=== PATIENT | female | born 1970 | race Caucasian/White ===

== ENCOUNTER 2016-11-15 07:26 | Emergency (ER) | payer OTHER ==
[~2016-11-15] VITALS: Ht 162.5 cm; Wt 72.6 kg
[~2016-11-15 07:26] MED LIST: AMBIEN10 M1 PO; MOTRIN800 MG PO; SUBOXONE 8 MG-21 TA1 SL
[2016-11-15] MEDS ORDERED: PREDNISONE50 MG PO (09:44)
[2016-11-15 09:52] VITALS: BP 140/72
== END 2016-11-15 09:27 | disposition home or self-care (01) ==
LOC: ED 07:26
DX: J20.9 Acute bronchitis, unspecified (principal); F17.200 Nicotine dependence, unspecified, uncomplicated; Z90.710 Acquired absence of both cervix and uterus; Z79.899 Other long term (current) drug therapy; Z88.0 Allergy status to penicillin

== ENCOUNTER 2017-01-13 15:17 | Emergency (ER) | payer OTHER ==
[~2017-01-13] VITALS: Ht 167.6 cm; Wt 72.6 kg
[2017-01-13 15:17] VITALS: BP 155/88
[~2017-01-13 15:17] MED LIST changes: +PREDNISONE50 MG PO
[2017-01-13] MEDS ORDERED: KETOROLAC10 MG PO ×2 (18:47→18:54)
[2017-01-13] MEDS ORDERED: CYCLOBENZAPRINE5 M3 PO (18:47)
[2017-01-13] MEDS ORDERED: CYCLOBENZAPRINE10 MG PO (18:54)
== END 2017-01-13 18:53 | disposition home or self-care (01) ==
LOC: ED 15:17
DX: S20.211A Contusion of right front wall of thorax, initial encounter (principal); M54.2 Cervicalgia; Z88.0 Allergy status to penicillin; Z79.899 Other long term (current) drug therapy; V49.88XA Car occupant (driver) (passenger) injured in other specified transport accidents, initial encounter; Y93.89 Activity, other specified; Y92.89 Other specified places as the place of occurrence of the external cause; Y99.8 Other external cause status

== ENCOUNTER 2017-02-22 09:48 | Emergency (ER) | payer OTHER ==
[~2017-02-22] VITALS: Wt 72.6 kg
[~2017-02-22 09:48] MED LIST changes: +CYCLOBENZAPRINE10 MG PO; +CYCLOBENZAPRINE5 M3 PO; +KETOROLAC10 MG PO
[2017-02-22 12:00] VITALS: BP 158/99
[2017-02-22] MEDS ORDERED: NORVASC5 MG PO (12:08)
== END 2017-02-22 12:24 | disposition home or self-care (01) ==
LOC: ED 09:48
DX: R51 Headache (principal); R03.0 Elevated blood-pressure reading, without diagnosis of hypertension; Z88.0 Allergy status to penicillin; Z90.710 Acquired absence of both cervix and uterus

== ENCOUNTER 2021-05-31 21:23 | Inpatient (IN) | payer OTHER ==
[~2021-05-31] VITALS: Ht 162.5 cm; Wt 74.9 kg
[~2021-05-31 21:23] MED LIST changes: +NORVASC5 MG PO
[2021-05-31 21:25] VITALS: BP 167/91; BP 175/104
[2021-05-31 22:02] LABS: HEMATOCRIT 44.4 % (37.0-47.0); MEAN CELL VOLUME 78.6 fl (81.0-99.0); MEAN CORPUSCULAR HGB 27.4 pg (27.0-31.0); MEAN CORPUSCULAR HGB CONC 34.9 g/dl (33.0-37.0); MEAN PLATELET VOLUME 11.6 fl (9.6-12.3); PLATELET COUNT AUTOMATED 383 10*3/uL (130-400); RED BLOOD COUNT 5.65 10*6/uL (4.10-5.10); RED CELL DISTRI WIDTH 13.5 % (0-14.5); WHITE BLOOD COUNT 14.3 10*3/uL (4.8-10.8)
[2021-05-31 22:05] LABS: MANUAL DIFF REFLEX YES
[2021-05-31 22:16] LABS: CREATININE 1.31 mg/dL (0.55-1.02); TOTAL PROTEIN 8.6 gm/dL (6.4-8.2)
[2021-05-31 22:23] LABS: POTASSIUM 2.2 mmol/L (3.5-5.1)
[2021-05-31 22:28] LABS: PLATELET SUFFICIENCY NORMAL (NORMAL); TOTAL CELLS COUNTED 100 #CELLS
[2021-05-31 23:12] LABS: BILIRUBIN Negative (Negative); BLOOD 2+ (Negative); CLARITY Clear (Clear); COLOR Yellow (Yellow); GLUCOSE 3+ (Negative); KETONE 4+ (Negative); LEUKO ESTERASE Negative (Negative); NITRITE Negative (Negative); UROBILINOGEN 0.2 E.U./dl (0.0-1.0)
[2021-05-31 23:26] LABS: WBC 0-2 wbc/hpf (0-5)
[2021-06-01] VITALS (7 sets, daily range): BP systolic 105–140; BP diastolic 62–82
[2021-06-01 00:22] LABS: ARTERIAL BLOOD GAS PH 7.199 (7.35-7.45)
[2021-06-01] MEDS ORDERED: METFORMIN HCL500 M2 PO (00:54)
[2021-06-01] MEDS ORDERED: LIPITOR10 MG PO (00:55)
[2021-06-01] MEDS ORDERED: HYDROCHLOROTHIA50 M1 PO (00:55)
[2021-06-01] MEDS ORDERED: CEFDINIR300 MG PO (00:56)
[2021-06-01 05:39] LABS: BUN 24 mg/dl (7-24); CHLORIDE 108 mmol/L (98-107); CREATININE 1.02 mg/dL (0.55-1.02); SODIUM 136 mmol/L (136-145)
[2021-06-01 05:42] LABS: CHOLESTEROL 261 mg/dL (<200); LDL CHOLESTEROL 180 mg/dL (9-159); TRIGLYCERIDES 197 mg/dl (<150)
[2021-06-01 05:45] LABS: POTASSIUM 2.3 mmol/L (3.5-5.1)
[2021-06-01 06:13] LABS: BASO % 0.1 % (0.0-1.0); LYMPH # 2.6 10*3/uL (1.3-4.4); LYMPH % 18.4 % (27.0-41.0); MEAN CELL VOLUME 78.1 fl (81.0-99.0); MEAN CORPUSCULAR HGB 28.2 pg (27.0-31.0); MEAN CORPUSCULAR HGB CONC 36.1 g/dl (33.0-37.0); MEAN PLATELET VOLUME 11.6 fl (9.6-12.3); MONO # 1.1 10*3/uL (0.1-1.0); MONO % 7.7 % (3.0-9.0); NEUT # 10.5 10*3/uL (2.3-7.9); NEUT % 73.2 % (47.0-73.0); PLATELET COUNT AUTOMATED 327 10*3/uL (130-400); RED BLOOD COUNT 5.25 10*6/uL (4.10-5.10); RED CELL DISTRI WIDTH 13.6 % (0-14.5); WHITE BLOOD COUNT 14.3 10*3/uL (4.8-10.8)
[2021-06-01 13:23] LABS: BUN 25 mg/dl (7-24); CHLORIDE 108 mmol/L (98-107); CREATININE 0.88 mg/dL (0.55-1.02); POTASSIUM 2.6 mmol/L (3.5-5.1); SODIUM 135 mmol/L (136-145)
[2021-06-01 16:07] LABS: ALKALINE PHOSPHATASE 72 U/L (45-117); BUN 24 mg/dl (7-24); CHLORIDE 108 mmol/L (98-107); CREATININE 0.99 mg/dL (0.55-1.02); POTASSIUM 2.8 mmol/L (3.5-5.1); SGOT/AST 14 IU/L (3-35); SGPT/ALT 37 U/L (12-78); SODIUM 135 mmol/L (136-145); TOTAL PROTEIN 6.6 gm/dL (6.4-8.2)
[2021-06-01 18:16] LABS: BUN 23 mg/dl (7-24); CHLORIDE 110 mmol/L (98-107); CREATININE 0.93 mg/dL (0.55-1.02); POTASSIUM 3.1 mmol/L (3.5-5.1); SODIUM 136 mmol/L (136-145)
[2021-06-01 22:12] LABS: BUN 20 mg/dl (7-24); CHLORIDE 116 mmol/L (98-107); CREATININE 0.83 mg/dL (0.55-1.02); POTASSIUM 3.3 mmol/L (3.5-5.1); SODIUM 141 mmol/L (136-145)
[2021-06-02] VITALS: BP 144/83
[2021-06-02 02:21] LABS: BUN 17 mg/dl (7-24); CHLORIDE 119 mmol/L (98-107); CREATININE 0.75 mg/dL (0.55-1.02); POTASSIUM 3.8 mmol/L (3.5-5.1); SODIUM 143 mmol/L (136-145)
[2021-06-02 04:00] VITALS: BP 145/91
[2021-06-02] MEDS ORDERED: BUPRENORPHINE-1 EAC2 SL (04:39)
[2021-06-02] MEDS ORDERED: IBU800 M1 PO (04:40)
[2021-06-02 06:26] LABS: BUN 15 mg/dl (7-24); CHLORIDE 121 mmol/L (98-107); CREATININE 0.62 mg/dL (0.55-1.02); SODIUM 144 mmol/L (136-145)
[2021-06-02 08:00] VITALS: BP 111/70
[2021-06-02 16:00] VITALS: BP 125/76
[2021-06-03 05:16] LABS: BUN 9 mg/dl (7-24); CHLORIDE 113 mmol/L (98-107); CREATININE 0.45 mg/dL (0.55-1.02); SODIUM 141 mmol/L (136-145)
[2021-06-03 05:55] LABS: POTASSIUM 2.9 mmol/L (3.5-5.1)
[2021-06-03 06:10] LABS: BASO % 0.4 % (0.0-1.0); EOS # 0.1 10*3/uL (0.0-0.4); EOS % 1.3 % (1.0-4.0); HEMATOCRIT 33.8 % (37.0-47.0); LYMPH # 2.7 10*3/uL (1.3-4.4); LYMPH % 50.1 % (27.0-41.0); MEAN CELL VOLUME 78.6 fl (81.0-99.0); MEAN CORPUSCULAR HGB 28.1 pg (27.0-31.0); MEAN CORPUSCULAR HGB CONC 35.8 g/dl (33.0-37.0); MEAN PLATELET VOLUME 11.5 fl (9.6-12.3); MONO # 0.4 10*3/uL (0.1-1.0); MONO % 7.1 % (3.0-9.0); NEUT # 2.2 10*3/uL (2.3-7.9); NEUT % 40.9 % (47.0-73.0); RED CELL DISTRI WIDTH 14.6 % (0-14.5); WHITE BLOOD COUNT 5.4 10*3/uL (4.8-10.8)
[2021-06-03 06:26] LABS: PLATELET COUNT AUTOMATED 212 10*3/uL (130-400)
[2021-06-03 10:00] VITALS: BP 128/70
[2021-06-03 11:22] LABS: BUN 9 mg/dl (7-24); CHLORIDE 106 mmol/L (98-107); CREATININE 0.69 mg/dL (0.55-1.02); POTASSIUM 3.3 mmol/L (3.5-5.1); SODIUM 133 mmol/L (136-145)
[2021-06-03] MEDS ORDERED: JARDIANCE10 MG PO (12:29)
[2021-06-03] MEDS ORDERED: LANTUS SOL100 UNIT/1 SC (12:29)
[2021-06-03] MEDS ORDERED: ZOFRAN4 MG PO (14:25)
== END 2021-06-03 14:58 | disposition home or self-care (01) | DRG 720 ==
LOC: ED 21:23 → ICCU 23:33 → EDHOLD 23:33 → ICCU 06-01 01:08
PROVIDERS: Hospitalist; Internal Medicine; Student in an Organized Health Care Education/Training Program; ADMIT Internal Medicine; ATTEND Internal Medicine
DX: A41.9 Sepsis, unspecified organism (principal); E11.10 Type 2 diabetes mellitus with ketoacidosis without coma; N17.0 Acute kidney failure with tubular necrosis; E78.5 Hyperlipidemia, unspecified; I10 Essential (primary) hypertension; E83.41 Hypermagnesemia; E87.6 Hypokalemia; Z88.0 Allergy status to penicillin; Z90.710 Acquired absence of both cervix and uterus; Z79.899 Other long term (current) drug therapy

== ENCOUNTER 2022-02-08 17:26 | Emergency (ER) | payer OTHER ==
[~2022-02-08] VITALS: Wt 77.1 kg
[~2022-02-08 17:26] MED LIST changes: +BUPRENORPHINE-1 EAC2 SL; +CEFDINIR300 MG PO; +HYDROCHLOROTHIA50 M1 PO; +IBU800 M1 PO; +JARDIANCE10 MG PO; +LANTUS SOL100 UNIT/1 SC; +LIPITOR10 MG PO; +METFORMIN HCL500 M2 PO; +ZOFRAN4 MG PO
[2022-02-08 20:10] LABS: BASO % 0.3 % (0.0-1.0); EOS # 0.2 10*3/uL (0.0-0.4); EOS % 1.6 % (1.0-4.0); HEMATOCRIT 41.7 % (37.0-47.0); LYMPH # 3.2 10*3/uL (1.3-4.4); LYMPH % 26.7 % (27.0-41.0); MEAN CELL VOLUME 82.7 fl (81.0-99.0); MEAN CORPUSCULAR HGB 28.8 pg (27.0-31.0); MEAN CORPUSCULAR HGB CONC 34.8 g/dl (33.0-37.0); MEAN PLATELET VOLUME 11.6 fl (9.6-12.3); MONO # 0.7 10*3/uL (0.1-1.0); MONO % 5.4 % (3.0-9.0); NEUT # 7.9 10*3/uL (2.3-7.9); NEUT % 65.7 % (47.0-73.0); PLATELET COUNT AUTOMATED 272 10*3/uL (130-400); RED BLOOD COUNT 5.04 10*6/uL (4.10-5.10); RED CELL DISTRI WIDTH 12.6 % (0-14.5)
[2022-02-08 20:38] LABS: ALKALINE PHOSPHATASE 70 U/L (46-116); BUN 20 mg/dl (9-23); CHLORIDE 95 mmol/L (98-107); CREATININE 0.92 mg/dL (0.55-1.02); POTASSIUM 2.9 mmol/L (3.4-5.1); SGPT/ALT 38 U/L (10-49); TOTAL PROTEIN 7.6 gm/dL (6.0-8.0)
[2022-02-08 21:03] LABS: BILIRUBIN Negative (Negative); BLOOD Negative (Negative); CLARITY Clear (Clear); COLOR Yellow (Yellow); GLUCOSE 3+ (Negative); KETONE Trace (Negative); LEUKO ESTERASE Negative (Negative); NITRITE Negative (Negative); PH 6.5 (4.5-8.0); SPECIFIC GRAVITY >= 1.030 (1.001-1.030)
[2022-02-08 21:19] LABS: BACTERIA 2+; EPITHELIAL CELLS TNTC; RBC 0-2 rbc/hpf (0-2)
[2022-02-08 21:35] VITALS: BP 136/84
== END 2022-02-09 00:26 | disposition home or self-care (01) ==
LOC: ED 17:26
PROVIDERS: Internal Medicine
DX: E11.65 Type 2 diabetes mellitus with hyperglycemia (principal); E87.6 Hypokalemia; Z88.0 Allergy status to penicillin; Z90.710 Acquired absence of both cervix and uterus